=== PATIENT | male | born 1960 | race Caucasian/White ===

== ENCOUNTER 2017-02-18 08:40 | Emergency (ER) | payer MEDICAID ==
[2017-02-18 08:40] VITALS: BMI 25.6
[2017-02-18 08:54] VITALS: PULSE 84
[2017-02-18 10:10] LABS: RBC URINE 1 /hpf (0-3); URINE BILIRUBIN NEGATIVE (NEGATIVE); URINE BLOOD NEGATIVE (NEGATIVE); URINE COLOR Yellow (YELLOW); URINE GLUCOSE (UA) NORMAL (Normal); URINE KETONE NEGATIVE (NEGATIVE); URINE LEUKOCYTE ESTERASE NEG Leu/uL (Negative); URINE PROTEIN NEGATIVE (NEGATIVE); URINE UROBILINOGEN NORMAL mg/dL (0.2-1.0); WBC URINE < 1 /hpf (0-5)
[2017-02-18 10:14] LABS: CHLORIDE 94 mmol/L (98-107)
[2017-02-18 10:15] LABS: POTASSIUM 4.1 mmol/L (3.6-5.2); SODIUM 136 mmol/L (132-148)
[2017-02-18 10:17] LABS: ALB/GLOB RATIO 1.3 (1.0-2.1); AMYLASE 58 U/L (30-110); BASO % 0.4 % (0.0-2.0); BILIRUBIN,TOTAL 0.2 mg/dL (0.2-1.3); BLOOD UREA NITROGEN 16 mg/dL (9-20); CARBON DIOXIDE 28 mmol/L (22-30); EOS # 0.4 K/uL (0.0-0.7); EOS % 5.9 % (0.0-4.0); GFR AFRICAN-AMERICAN > 60; HEMATOCRIT 38.7 % (35.0-51.0); LYMPH # 1.6 K/uL (1.0-4.3); LYMPH % 23.1 % (20.0-40.0); MEAN CORPUSCULAR HEMOGLOBIN 32.8 pg (27.0-31.0); MEAN CORPUSCULAR HGB CONC 33.5 g/dL (33.0-37.0); MEAN PLATELET VOLUME 9.1 fL (7.2-11.7); MONO # 0.6 K/uL (0.0-0.8); MONO % 8.1 % (0.0-10.0); NRBC % 0.1 % (0.0-2.0); RED CELL DISTRIBUTION WIDTH 13.1 % (11.5-14.5); TOTAL PROTEIN 6.4 g/dL (6.3-8.3)
[2017-02-18 10:18] LABS: ALKALINE PHOSPHATASE 43 U/L (38-126); ALT/SGPT 60 U/L (21-72); AST/SGOT 41 U/L (17-59); CALCIUM 8.6 mg/dl (8.6-10.4); GLUCOSE,RANDOM 178 mg/dL (75-110)
[2017-02-18 10:19] LABS: ALCOHOL SERUM < 10 mg/dl (0-10)
[2017-02-18 10:20] LABS: WHITE BLOOD COUNT 7.1 K/uL (4.8-10.8)
--- NOTE | 2017-02-18 11:48 | C.PDOC ---
History Of Present Illness 56 year old patient presents to the ED complaining of abdominal pain and bloating. Patient notes dark stools. Also complains of occasional whistling when he is breathing. Currently asymptomatic. When patient was asked, he states he feels "good". Patient denies fever, nausea, vomiting, chest pain, shortness of breath, suicidal or homicidal ideation. Patient was evaluated by the PMD last week, CT scan and labs were done at that time and pt diagnosed with chronic pancreatitis. Information from primarily. Time Seen by Provider: 02/18/17 08:58 Chief Complaint (Nursing): Abdominal Pain History Per: Patient, Family, [place] History/Exam Limitations: language barrier Onset/Duration Of Symptoms: Days Current Symptoms Are (Timing): Still Present Context: Other Severity: Mild Pain Scale Rating Of: 3 Location Of Pain/Discomfort: Diffuse Radiation Of Pain To:: None Quality Of Discomfort: "Pain" Exacerbating Factors: None Alleviating Factors: None Last Bowel Movement: Today Recent travel outside of the [place]: No Additional History Per: Family Past Medical History Reviewed: Historical Data, Nursing Documentation, Vital Signs Vital Signs: Last Vital Signs Temp 98.9 F 02/18/17 12:27 Pulse 84 02/18/17 12:27 Resp 20 02/18/17 12:27 BP 103/69 02/18/17 12:27 Pulse Ox 94 L 02/18/17 12:44 - Medical History PMH: Anxiety, Bipolar Disorder, Depression, Schizophrenia Surgical History: Cholecystectomy - [facility] Procedures INJECT/INFUSE NEC (12/31/03) INTRAOPER CHOLANGIOGRAM (03/16/01) LAPAROSCOPIC CHOLECYSTECTOMY (03/16/01) Family History: States: Unknown Family Hx - Social History Hx Alcohol Use: Yes Hx Substance Use: No - Immunization History Hx Tetanus Toxoid Vaccination: No Hx Influenza Vaccination: No Hx Pneumococcal Vaccination: No Review Of Systems Except As Marked, All Systems Reviewed And Found Negative. Constitutional: Negative for: Fever Cardiovascular: Negative for: Chest Pain Respiratory: Negative for: Shortness of Breath Gastrointestinal: Positive for: Abdominal Pain, Other (bloating). Negative for : Nausea, Vomiting Physical Exam - Physical Exam Appears: Non-toxic, No Acute Distress (sleeping) Skin: Warm, Dry Head: Atraumatic, Normacephalic Eye(s): bilateral: Normal Inspection, EOMI Nose: Normal Oral Mucosa: Moist Throat: No Drooling, Other ((-) stridor) Neck: Normal ROM, Supple Chest: Symmetrical Cardiovascular: Rhythm Regular Respiratory: Normal Breath Sounds, No Accessory Muscle Use, No Rales, No Rhonchi , No Stridor, No Wheezing Gastrointestinal/Abdominal: Soft, No Tenderness, No Guarding, No Rebound Rectal: No Hemorrhoids, No Mass, No Tenderness, Other ((-)bright red blood) Back: Normal Inspection, No CVA Tenderness Extremity: Normal ROM Neurological/Psych: Oriented x3 ED Course And Treatment - Laboratory Results Result Diagrams: 02/18/17 10:01 02/18/17 10:01 O2 Sat by Pulse Oximetry: 94 (RA) - Other Rad Obstructive Series X-Ray: Interpreted by Me, Viewed By Me Interpretation: +FOS. No air fluid levels. Progress Note: Plan: -Labs. -Obstructive Series. --Reassess and disposition. Patient's old CT scan was examined which notes chronic pancreatitis, no signs of acute. Patient is tolerating po in the ED. Pt has recent CT and no new symptoms since. Answering questions appropriately. No admoninal tenderness on deep palpation. No leg swelling. No chest pain. No SOB. No tachycardic or hypoxic. Use inhaler as needed for difficulty breathing and if "whistling" occurs. Follow up with PMD in 1-2 days, or return if symptoms persist or worsen. Case discussed with Dr Potter, agreed upon plan and discharge. Disposition - Disposition Referrals: Cuca Pringle MD [Non-Staff] - Disposition: HOME/ ROUTINE Disposition Time: 12:09 Condition: STABLE Additional Instructions: Vaya a sauceda mdico o la clnica en 2-5 garcia sin falta, para mas evaluacin. Volver a la andie de emergencia en cualquier momento si los sntomas persisten o empeoran. Prescriptions: Albuterol HFA [Ventolin HFA 90 mcg/actuation (8 g)] 2 puff IH [id number] PRN #1 puff PRN Reason: Shortness Of Breath Magnesium Citrate 100 mg PO BID #20 tablet Instructions: Rectal Bleeding (ED) Print Language: MONGOLIAN - Clinical Impression Clinical Impression: Abdominal bloating, Constipation - PA / UPFITTER / Resident Statement MD/DO has reviewed & agrees with the documentation as recorded. - Scribe Statement The provider has reviewed the documentation as recorded by the Scribe Cristina Newberry All medical record entries made by the Scribe were at my direction and personally dictated by me. I have reviewed the chart and agree that the record accurately reflects my personal performance of the history, physical exam, medical decision making, and the department course for this patient. I have also personally directed, reviewed, and agree with the discharge instructions and disposition.
--- NOTE | 2017-02-18 12:15 | RAD ---
Abdomen four views History: Abdominal pain. Comparison: None available. Findings: Mild venous congestion. Right hilar prominence. Patchy increased markings at the left lung base. Cardiomegaly. Surgical clips in the right upper abdomen. Moderate fecal retention in the colon. No evidence of gross bowel obstruction. Impression: Moderate fecal retention in the colon.
[2017-02-18 12:28] VITALS: BP 103/69; RESP 20; TEMP 98.9
[2017-02-18 12:36] VITALS: O2SAT 94
== END 2017-02-18 12:35 | disposition home or self-care (01) ==
LOC: C.ER 08:40
DX: K59.00 Constipation, unspecified (principal); R14.0 Abdominal distension (gaseous)
CPT/HCPCS: 74022; 80053; 80320; 80324; 80345; 80346; 80349; 80353; 80358; 80361; 81001; 82150; 82550; 83690; 83992; 85025; 99284; G0328

== ENCOUNTER 2017-02-24 10:54 | Emergency (ER) | payer MEDICAID ==
[2017-02-24 10:58] VITALS: BMI 26.4
[2017-02-24] MEDS ORDERED: Sodium Chloride 0.9% 1,000 ML IV ONE (11:20)
--- NOTE | 2017-02-24 11:23 | C.PDOC ---
History Of Present Illness 56 year old male presents to the ED with complaints of vomiting and nausea beginning last night. He notes a history of depression and bipolar disorder. Patient denies any abdominal pain, diarrhea, or fever. Time Seen by Provider: 02/24/17 11:10 Chief Complaint (Nursing): Abdominal Pain History Per: Patient History/Exam Limitations: no limitations Onset/Duration Of Symptoms: Hrs Current Symptoms Are (Timing): Still Present Associated Symptoms: Nausea, Vomiting. denies: Fever, Chills, Diarrhea, Back Pain Past Medical History Reviewed: Historical Data, Nursing Documentation, Vital Signs Vital Signs: Last Vital Signs Temp 97.7 F 02/24/17 10:58 Pulse 84 02/24/17 10:58 Resp 18 02/24/17 10:58 BP 126/86 02/24/17 10:58 Pulse Ox 97 02/24/17 10:58 - Medical History PMH: Anxiety, Bipolar Disorder, Depression, Schizophrenia, Seizures (Pt. denied) Surgical History: Cholecystectomy - [facility] Procedures INJECT/INFUSE NEC (12/31/03) INTRAOPER CHOLANGIOGRAM (03/16/01) LAPAROSCOPIC CHOLECYSTECTOMY (03/16/01) Family History: States: Unknown Family Hx - Social History Hx Alcohol Use: Yes Hx Substance Use: No - Immunization History Hx Tetanus Toxoid Vaccination: No Hx Influenza Vaccination: No Hx Pneumococcal Vaccination: No Review Of Systems Constitutional: Negative for: Fever, Chills, Sweats Cardiovascular: Negative for: Chest Pain Respiratory: Negative for: Cough, Shortness of Breath Gastrointestinal: Positive for: Nausea, Vomiting. Negative for: Abdominal Pain , Diarrhea Genitourinary: Negative for: Dysuria Musculoskeletal: Negative for: Back Pain Physical Exam - Physical Exam Appears: Non-toxic, No Acute Distress Skin: Warm, Dry Head: Normacephalic Eye(s): bilateral: PERRL, EOMI Ear(s): Bilateral: Normal Oral Mucosa: Moist Tongue: Normal Appearing Lips: Normal Appearing Neck: Normal ROM, Supple Chest: Symmetrical, No Deformity Cardiovascular: Rhythm Regular Respiratory: No Decreased Breath Sounds, No Accessory Muscle Use, No Rales, No Rhonchi, No Stridor, No Wheezing Gastrointestinal/Abdominal: Soft, No Tenderness, No Distention, No Guarding, No Rebound Extremity: Normal ROM, No Tenderness Neurological/Psych: Oriented x3 ED Course And Treatment O2 Sat by Pulse Oximetry: 97 - Scribe Statement The provider has reviewed the documentation as recorded by the Scribe Yohana Cross All medical record entries made by the Scribe were at my direction and personally dictated by me. I have reviewed the chart and agree that the record accurately reflects my personal performance of the history, physical exam, medical decision making, and the department course for this patient. I have also personally directed, reviewed, and agree with the discharge instructions and disposition.
[2017-02-24] MEDS ORDERED: Sodium Chloride 0.9% 1,000 ML ONE (11:26)
--- NOTE | 2017-02-24 11:27 | C.PDOC ---
History Of Present Illness 56 year old male presents to the ED with complaints of nause and vomiting beginning last night. He notes a history of depression and bipolar disorder. Patient denies any fever, abdominal pain, diarrhea, recent travel. Of note is also being seen ED for vomiting and abdominal pain. Time Seen by Provider: 02/24/17 11:10 Chief Complaint (Nursing): Abdominal Pain History Per: Patient History/Exam Limitations: no limitations Onset/Duration Of Symptoms: Hrs Current Symptoms Are (Timing): Better Context: Other (sick contacts) Severity: None Associated Symptoms: Nausea, Vomiting. denies: Fever, Chills, Diarrhea Past Medical History Reviewed: Historical Data, Nursing Documentation, Vital Signs Vital Signs: Last Vital Signs Temp 97.6 F 02/24/17 12:32 Pulse 78 02/24/17 12:32 Resp 16 02/24/17 12:32 BP 120/87 02/24/17 12:32 Pulse Ox 98 02/24/17 12:32 - Medical History PMH: Anxiety, Bipolar Disorder, Depression, Pancreatitis, Schizophrenia, Seizures (Pt. denied) Surgical History: Cholecystectomy - [facility] Procedures INJECT/INFUSE NEC (12/31/03) INTRAOPER CHOLANGIOGRAM (03/16/01) LAPAROSCOPIC CHOLECYSTECTOMY (03/16/01) Family History: States: Unknown Family Hx - Social History Hx Alcohol Use: Yes Hx Substance Use: No - Immunization History Hx Tetanus Toxoid Vaccination: No Hx Influenza Vaccination: No Hx Pneumococcal Vaccination: No Review Of Systems Constitutional: Negative for: Fever, Chills, Sweats Cardiovascular: Negative for: Chest Pain Respiratory: Negative for: Cough, Shortness of Breath Gastrointestinal: Positive for: Nausea, Vomiting. Negative for: Abdominal Pain , Diarrhea Genitourinary: Negative for: Dysuria Musculoskeletal: Negative for: Back Pain Physical Exam - Physical Exam Appears: Non-toxic, No Acute Distress Skin: Warm, Dry Head: Atraumatic, Normacephalic Eye(s): bilateral: Normal Inspection Oral Mucosa: Moist Lips: Normal Appearing Throat: Normal Neck: Normal ROM, Supple Chest: Symmetrical, No Deformity Cardiovascular: Rhythm Regular Respiratory: No Decreased Breath Sounds, No Accessory Muscle Use, No Rales, No Rhonchi, No Stridor, No Wheezing Gastrointestinal/Abdominal: Bowel Sounds, Soft, No Tenderness, No Mass, No Distention, No Guarding, No Rebound, No Hernia Extremity: Normal ROM, No Tenderness, No Deformity Neurological/Psych: Oriented x3, Normal Speech Gait: Steady ED Course And Treatment - Laboratory Results Result Diagrams: 02/24/17 11:34 02/24/17 11:34 Lab Interpretation: No Acute Changes O2 Sat by Pulse Oximetry: 97 (room air) Pulse Ox Interpretation: Normal Medical Decision Making Medical Decision Makin y.o male with nausea and vomiting since yesterday. Patient appears well nontoxic and in no distress. No abdominal pain or tenderness on palpation. Patient treated with IV NS and Zofran. Prior records reviewed and patient has history of chronic pancreatitis. Of note patient also being evaluated in Ed for similar symptoms. Labs ordered and reviewed, lipase WNL. Patient re- evaluated and is seated comfortably in no distress. He reports feeling better and was able to tolerate po. patient stable for discharge. Disposition Counseled Patient/Family Regarding: Need For Followup, Rx Given - Disposition Referrals: Cuca Pringle MD [Non-Staff] - Disposition: HOME/ ROUTINE Disposition Time: 12:18 Condition: STABLE Additional Instructions: Drink fluids to prevent dehydration. Take Zofran as prescribed. Try low-fat diet with increase in fluids such as sport drink, gelatin. Prescriptions: Ondansetron ODT [Zofran ODT] 1 odt PO BID PRN #6 odt PRN Reason: Nausea/Vomiting Instructions: Acute Nausea and Vomiting (ED) Print Language: POLISH - POA Present On Arrival: None - Clinical Impression Clinical Impression: Nausea & vomiting - Scribe Statement The provider has reviewed the documentation as recorded by the Seeibmorgan Cross All medical record entries made by the Seeibmorgan were at my direction and personally dictated by me. I have reviewed the chart and agree that the record accurately reflects my personal performance of the history, physical exam, medical decision making, and the department course for this patient. I have also personally directed, reviewed, and agree with the discharge instructions and disposition.
[2017-02-24 11:41] LABS: BASO % 0.4 % (0.0-2.0); EOS # 0.1 K/uL (0.0-0.7); EOS % 0.7 % (0.0-4.0); HEMATOCRIT 44.5 % (35.0-51.0); LYMPH # 0.8 K/uL (1.0-4.3); LYMPH % 6.5 % (20.0-40.0); MEAN CELL VOLUME 96.9 fL (80.0-94.0); MEAN CORPUSCULAR HEMOGLOBIN 32.5 pg (27.0-31.0); MEAN CORPUSCULAR HGB CONC 33.5 g/dL (33.0-37.0); MEAN PLATELET VOLUME 8.9 fL (7.2-11.7); MONO # 0.5 K/uL (0.0-0.8); MONO % 4.4 % (0.0-10.0); PLATELET COUNT 374 K/uL (130-400); WHITE BLOOD COUNT 12.1 K/uL (4.8-10.8)
[2017-02-24 11:47] LABS: CHLORIDE 99 mmol/L (98-107); POTASSIUM 4.4 mmol/L (3.6-5.2); SODIUM 138 mmol/L (132-148)
[2017-02-24 11:49] LABS: ALB/GLOB RATIO 1.3 (1.0-2.1); AST/SGOT 30 U/L (17-59); BILIRUBIN,TOTAL 0.7 mg/dL (0.2-1.3); CARBON DIOXIDE 25 mmol/L (22-30); GFR AFRICAN-AMERICAN > 60; TOTAL PROTEIN 8.3 g/dL (6.3-8.3)
[2017-02-24 11:50] LABS: ALKALINE PHOSPHATASE 61 U/L (38-126); ALT/SGPT 46 U/L (21-72); BLOOD UREA NITROGEN 26 mg/dL (9-20); CALCIUM 9.3 mg/dl (8.6-10.4); GLUCOSE,RANDOM 157 mg/dL (75-110)
[2017-02-24 12:00] LABS: EOSINOPHIL 1 % (0-4); NEUTROPHIL 89 % (50-75); TOTAL CELLS COUNTED 100
[2017-02-24 12:07] LABS: LARGE PLATELETS PRESENT
[2017-02-24 12:34] VITALS: BP 120/87; PULSE 78; RESP 16; TEMP 97.6
[2017-02-24 15:28] VITALS: O2SAT 97
== END 2017-02-24 12:32 | disposition home or self-care (01) ==
LOC: C.ER 10:54
DX: R11.2 Nausea with vomiting, unspecified (principal)
CPT/HCPCS: 80053; 83690; 85025; 96361; 96374; 99284; J2405; J7040

== ENCOUNTER 2017-04-02 16:36 | Emergency (ER) | payer MEDICAID ==
[2017-04-02 16:36] VITALS: BMI 26.4
[2017-04-02 17:18] VITALS: TEMP 97.8
--- NOTE | 2017-04-02 17:41 | C.PDOC ---
History Of Present Illness 56 y/o M p/w L sided back pain since yesterday. Describes pain as constant, worse with movement, not associated with trauma. Denies fever, vomiting, dysuria , hematuria, weakness, numbness, urinary or bowel retention or incontinence. Time Seen by Provider: 04/02/17 17:34 Chief Complaint (Nursing): Back Pain Past Medical History Vital Signs: Last Vital Signs Temp 97.8 F 04/02/17 17:12 Pulse 100 H 04/02/17 17:12 Resp 14 04/02/17 17:12 BP 110/75 04/02/17 17:12 Pulse Ox 97 04/02/17 17:41 - Medical History PMH: Anxiety, Bipolar Disorder, Depression, Pancreatitis, Schizophrenia Denies: Chronic Kidney Disease Comment Only: Seizures (Pt. denied) Surgical History: Cholecystectomy - [facility] Procedures INJECT/INFUSE NEC (12/31/03) INTRAOPER CHOLANGIOGRAM (03/16/01) LAPAROSCOPIC CHOLECYSTECTOMY (03/16/01) Family History: States: Unknown Family Hx - Social History Hx Alcohol Use: No Hx Substance Use: No - Immunization History Hx Tetanus Toxoid Vaccination: No Hx Influenza Vaccination: No Hx Pneumococcal Vaccination: No Review Of Systems Except As Marked, All Systems Reviewed And Found Negative. Constitutional: Negative for: Fever Respiratory: Negative for: Shortness of Breath Physical Exam - Physical Exam Appears: No Acute Distress Skin: Normal Color, No Rash Head: Atraumatic, Normacephalic Eye(s): bilateral: PERRL Oral Mucosa: Moist Neck: Normal ROM, No Midline Cervical Tenderness Lymphatic: No Adenopathy Cardiovascular: Rhythm Regular Respiratory: Normal Breath Sounds Gastrointestinal/Abdominal: Soft, No Tenderness, No Distention, No Guarding, No Rebound Back: No Normal Inspection (L sided lumbar tenderness), No Vertebral Tenderness Extremity: No Tenderness, No Swelling Extremity: Bilateral: Normal ROM Pulses: Left Radial: Normal, Right Radial: Normal Neurological/Psych: Normal Speech, Normal Cognition, Normal Motor, Normal Sensation Gait: Steady ED Course And Treatment O2 Sat by Pulse Oximetry: 97 Medical Decision Making Medical Decision Making: UA to evaluate for infection or hematuria. Toradol for pain. Patient felt much better after medication and requesting to go home. F/u PMD, return to ER for vomiting, dysuria, hematuria. Disposition - Disposition Referrals: Cuca Pringle MD [Non-Staff] - Disposition: HOME/ ROUTINE Disposition Time: 18:10 Condition: STABLE Prescriptions: Ibuprofen [Motrin] 600 mg PO Q6 #25 tab Instructions: Back Pain (ED) - Clinical Impression Clinical Impression: Low back pain
[2017-04-02 17:46] LABS: RBC URINE 1 /hpf (0-3); URINE BILIRUBIN NEGATIVE (NEGATIVE); URINE BLOOD 1+ (NEGATIVE); URINE COLOR Straw (YELLOW); URINE GLUCOSE (UA) NORMAL (Normal); URINE KETONE NEGATIVE (NEGATIVE); URINE LEUKOCYTE ESTERASE NEG Leu/uL (Negative); URINE PROTEIN NEGATIVE (NEGATIVE); URINE UROBILINOGEN NORMAL mg/dL (0.2-1.0); WBC URINE < 1 /hpf (0-5)
[2017-04-02 18:17] VITALS: BP 113/79; PULSE 90; RESP 18; O2SAT 95
== END 2017-04-02 18:17 | disposition home or self-care (01) ==
LOC: C.ER 16:36
DX: M54.5 Low back pain (principal)
CPT/HCPCS: 81001; 96372; 99284; J1885

== ENCOUNTER 2017-09-28 10:59 | Emergency (ER) | payer MEDICAID, OTHER ==
[2017-09-28 10:59] VITALS: BMI 26.4
[2017-09-28 11:24] VITALS: TEMP 97.6
--- NOTE | 2017-09-28 12:06 | C.PDOC ---
History Of Present Illness 57 y/o male, with PMHx of Schizophrenia, and bipolar disorder, presents to ED for evaluation of depression and anxiety. Notes that he has not slept or ate in the past 3 days. No other complaints. Time Seen by Provider: 09/28/17 11:47 Chief Complaint (Nursing): Psychiatric Evaluation History Per: Patient History/Exam Limitations: no limitations Onset/Duration Of Symptoms: Gradual Current Symptoms Are (Timing): Still Present Suicide/Self Injury Attempted (Context): None Modifying Factor(s): None Severity: None Pain Scale Rating Of: 0 Associated Symptoms: Anxiety, Depression. denies: Suicidal Thoughts, Suicidal Plan Involuntary Hold By: None Recent travel outside of the [place]: No Additional History Per: Patient Past Medical History Reviewed: Historical Data, Nursing Documentation, Vital Signs Vital Signs: Last Vital Signs Temp 97.6 F 09/28/17 11:22 Pulse 82 09/28/17 13:23 Resp 18 09/28/17 13:23 BP 113/76 09/28/17 13:23 Pulse Ox 95 09/28/17 13:23 - Medical History PMH: Anxiety, Bipolar Disorder, Depression, Hypercholesterolemia, Pancreatitis, Schizophrenia Denies: Chronic Kidney Disease Comment Only: Seizures (Pt. denied) Surgical History: Cholecystectomy - [facility] Procedures INJECT/INFUSE NEC (12/31/03) INTRAOPER CHOLANGIOGRAM (03/16/01) LAPAROSCOPIC CHOLECYSTECTOMY (03/16/01) Family History: States: Unknown Family Hx - Social History Hx Alcohol Use: No Hx Substance Use: No - Immunization History Hx Tetanus Toxoid Vaccination: No Hx Influenza Vaccination: No Hx Pneumococcal Vaccination: No Review Of Systems Except As Marked, All Systems Reviewed And Found Negative. Constitutional: Negative for: Fever, Chills Cardiovascular: Negative for: Chest Pain, Palpitations Respiratory: Negative for: Cough, Shortness of Breath Psych: Positive for: Anxiety, Depression. Negative for: Suicidal ideation Physical Exam - Physical Exam Appears: Non-toxic, No Acute Distress, Other (anxious) Skin: Normal Color, Warm, Dry Head: Atraumatic, Normacephalic Eye(s): bilateral: Normal Inspection Oral Mucosa: Moist Neck: Normal ROM, Supple Chest: Symmetrical Cardiovascular: Rhythm Regular, No Murmur Respiratory: Normal Breath Sounds, No Rales, No Rhonchi, No Wheezing Extremity: Normal ROM Neurological/Psych: Oriented x3, Normal Speech ED Course And Treatment - Laboratory Results Result Diagrams: 09/28/17 12:04 09/28/17 12:04 O2 Sat by Pulse Oximetry: 96 Pulse Ox Interpretation: Normal Medical Decision Making Medical Decision Making: Blood work, UA ordered and reviewed. pt given ativan. Pt was cleared by crisis department. s/p ativan, much better. pt requests outpt managment. given outpt f/u by feed in worker. Disposition - Disposition Referrals: [facility] [Outside] Disposition: HOME/ ROUTINE Disposition Time: 01:00 Condition: STABLE Additional Instructions: follow up as instruted by feed in worker. return to er with worsening symptoms or concerns. Instructions: Anxiety (ED) Forms: [facility] (North Korean) - Clinical Impression Clinical Impression: Anxiety - Scribe Statement The provider has reviewed the documentation as recorded by the Scribe Perry Newberry All medical record entries made by the Scribe were at my direction and personally dictated by me. I have reviewed the chart and agree that the record accurately reflects my personal performance of the history, physical exam, medical decision making, and the department course for this patient. I have also personally directed, reviewed, and agree with the discharge instructions and disposition.
[2017-09-28 12:08] LABS: BASO % 0.5 % (0.0-2.0); EOS # 0.1 K/uL (0.0-0.7); EOS % 1.5 % (0.0-4.0); HEMATOCRIT 46.6 % (35.0-51.0); LYMPH # 1.9 K/uL (1.0-4.3); LYMPH % 22.7 % (20.0-40.0); MEAN CELL VOLUME 95.8 fL (80.0-94.0); MEAN CORPUSCULAR HEMOGLOBIN 32.9 pg (27.0-31.0); MEAN CORPUSCULAR HGB CONC 34.4 g/dL (33.0-37.0); MEAN PLATELET VOLUME 8.7 fL (7.2-11.7); MONO # 0.5 K/uL (0.0-0.8); MONO % 6.2 % (0.0-10.0); RED CELL DISTRIBUTION WIDTH 13.5 % (11.5-14.5); WHITE BLOOD COUNT 8.3 K/uL (4.8-10.8)
[2017-09-28 12:31] LABS: ALB/GLOB RATIO 1.4 (1.0-2.1); ALCOHOL SERUM < 10 mg/dl (0-10); ALKALINE PHOSPHATASE 63 U/L (38-126); ALT/SGPT 80 U/L (21-72); AST/SGOT 37 U/L (17-59); BLOOD UREA NITROGEN 20 mg/dL (9-20); CALCIUM 8.9 mg/dl (8.6-10.4); CARBON DIOXIDE 25 mmol/L (22-30); CHLORIDE 101 mmol/L (98-107); GFR AFRICAN-AMERICAN > 60; GLUCOSE,RANDOM 148 mg/dL (75-110); POTASSIUM 4.2 mmol/L (3.6-5.2); SODIUM 137 mmol/L (132-148)
[2017-09-28 13:24] VITALS: BP 113/76; PULSE 82; RESP 18
[2017-09-28 14:43] VITALS: O2SAT 96
== END 2017-09-28 14:15 | disposition home or self-care (01) ==
LOC: C.ER 10:59
DX: F41.9 Anxiety disorder, unspecified (principal); E78.00 Pure hypercholesterolemia, unspecified

== ENCOUNTER 2017-10-22 09:52 | Emergency (ER) | payer OTHER ==
[2017-10-22 10:07] VITALS: BMI 26.9
[2017-10-22 10:09] VITALS: TEMP 98.1
[2017-10-22] MEDS ORDERED: Sodium Chloride 0.9% 1,000 ML IV ONE (10:26)
[2017-10-22 10:38] LABS: BASO # 0.1 K/uL (0.0-0.2); BASO % 0.6 % (0.0-2.0); EOS % 0.5 % (0.0-4.0); HEMATOCRIT 44.6 % (35.0-51.0); LYMPH # 1.8 K/uL (1.0-4.3); LYMPH % 17.5 % (20.0-40.0); MEAN CELL VOLUME 95.9 fL (80.0-94.0); MEAN CORPUSCULAR HEMOGLOBIN 32.8 pg (27.0-31.0); MEAN CORPUSCULAR HGB CONC 34.2 g/dL (33.0-37.0); MEAN PLATELET VOLUME 8.7 fL (7.2-11.7); MONO # 0.6 K/uL (0.0-0.8); MONO % 5.9 % (0.0-10.0); RED CELL DISTRIBUTION WIDTH 13.3 % (11.5-14.5); WHITE BLOOD COUNT 10.1 K/uL (4.8-10.8)
[2017-10-22] MEDS ORDERED: Sodium Chloride 0.9% 1,000 ML ONE (10:41)
[2017-10-22 10:52] LABS: ALKALINE PHOSPHATASE 68 U/L (38-126); ALT/SGPT 66 U/L (21-72); AST/SGOT 30 U/L (17-59); BILIRUBIN,TOTAL 0.9 mg/dL (0.2-1.3); BLOOD UREA NITROGEN 17 mg/dL (9-20); CALCIUM 8.9 mg/dl (8.6-10.4); CARBON DIOXIDE 24 mmol/L (22-30); CHLORIDE 104 mmol/L (98-107); GFR AFRICAN-AMERICAN > 60; GLUCOSE,RANDOM 161 mg/dL (75-110); SODIUM 141 mmol/L (132-148); TOTAL PROTEIN 8.8 g/dL (6.3-8.3)
--- NOTE | 2017-10-22 10:58 | C.PDOC ---
History Of Present Illness 57 y/o male with a PMHx that includes Schizophrenia present to ED reports " dont feel good, nausea, epigastric pain". Pt admits, depleted his medication and feel depressed now. Pt states he recently moved to [place] from [place] in 11/2016. Otherwise, pt denies fever, chills, headache, dizziness, visual changes, focal deficits, CP, SOB, dyspnea, palpitation, V/D, UTI sx, denies weakness, sensory or vascular deficits to B?L UEs and LEs, denies suicidal or homocidal ideation. AT present time, appears depressed, crying. Time Seen by Provider: 10/22/17 10:11 Chief Complaint (Nursing): GI Problem History Per: Patient Past Medical History Reviewed: Historical Data, Nursing Documentation, Vital Signs Vital Signs: Last Vital Signs Temp 98.1 F 10/22/17 10:08 Pulse 86 10/22/17 12:15 Resp 17 10/22/17 12:15 BP 124/80 10/22/17 12:15 Pulse Ox 97 10/22/17 12:15 - Medical History PMH: Anxiety, Bipolar Disorder, Depression, Hypercholesterolemia, Pancreatitis, Schizophrenia Denies: Chronic Kidney Disease Comment Only: Seizures (Pt. denied) Surgical History: Cholecystectomy - [facility] Procedures INJECT/INFUSE NEC (12/31/03) INTRAOPER CHOLANGIOGRAM (03/16/01) LAPAROSCOPIC CHOLECYSTECTOMY (03/16/01) Family History: States: Unknown Family Hx - Social History Hx Alcohol Use: No Hx Substance Use: No - Immunization History Hx Tetanus Toxoid Vaccination: No Hx Influenza Vaccination: No Hx Pneumococcal Vaccination: No Review Of Systems Except As Marked, All Systems Reviewed And Found Negative. Constitutional: Negative for: Fever, Chills Eyes: Negative for: Vision Change ENT: Negative for: Ear Discharge, Throat Pain Cardiovascular: Negative for: Chest Pain, Palpitations Respiratory: Negative for: Cough, Shortness of Breath Gastrointestinal: Positive for: Nausea, Abdominal Pain. Negative for: Vomiting , Diarrhea, Hematochezia, Hematemesis Genitourinary: Negative for: Dysuria, Incontinence Musculoskeletal: Negative for: Neck Pain, Back Pain Neurological: Negative for: Weakness, Numbness, Altered Mental Status, Headache , Dizziness Psych: Positive for: Depression Physical Exam - Physical Exam Appears: Well, No Acute Distress, Other (emotional ditress, crying) Skin: Normal Color, Warm, Dry, No Rash Eye(s): bilateral: PERRL Nose: No Discharge Oral Mucosa: Moist, No Drooling Throat: No Erythema, No Exudate, No Drooling Neck: Trachea Midline, Supple Cardiovascular: Rhythm Regular, No Murmur, No JVD Respiratory: No Stridor, No Wheezing Gastrointestinal/Abdominal: Soft, No Tenderness, No Distention, No Guarding Back: No CVA Tenderness Extremity: Normal ROM, No Pedal Edema, No Deformity Neurological/Psych: Oriented x3, Normal Speech ED Course And Treatment - Laboratory Results Result Diagrams: 10/22/17 10:35 10/22/17 10:35 Lab Interpretation: Normal O2 Sat by Pulse Oximetry: 95 Pulse Ox Interpretation: Normal - Radiology CXR: Interpreted by Me, Viewed By Me CXR Interpretation: Yes: No Acute Disease Progress Note: AT 11:10, PT IS MEDICALLY CLEARED FOR PSYCH EVALUATION. On re- evaluation, pt appears more comfortable, not in nay apparent distress. Awake, appropriate, denies siocodal or homocidal ideation. Afebrile, hemodynamicaly stable. NOn-toxic. Neck: SUpple, (-) meningeal sign. Lungs: CTA B/L, BS equal B/L. CVS: (+)S1S2, reg. Abd: Benign. Neuorlogicaly intact. Blood work review and appears normal. Pt was evaluated by bench worker apprentice Luciano, and case discussed with . Pt has his medication refill at pharmacy " [place], [place] and ready for crop picker today. As per Luciano, pt does not meet admission criteria and is stable for discharge and outpt f/u now. Pt advised on course of ds.Pt understand and agrees with discharges. ref. to F/u with PMD , Psych in 2-3 days for re-eavl. return to ED if any worsening or new changes. Disposition Counseled Patient/Family Regarding: Studies Performed, Diagnosis, Need For Followup - Disposition Referrals: [facility] [Outside] [facility] [Outside] Disposition: HOME/ ROUTINE Disposition Time: 12:01 Condition: STABLE Additional Instructions: TAKE YOUR MEDICATION PRESCRIBED FOLLOW UP WITH PSYCHIATRIST IN 1-2 DAYS FOR RE-EVALUATION. RETURN TO ED IF ANY WORSENING OR NEW CHANGES. Instructions: Depression (ED), Schizophrenia (ED) Forms: [facility] (Syri[place]) Print Language: THAI - Clinical Impression Clinical Impression: Depression, Schizophrenia
[2017-10-22 11:00] LABS: URINE BILIRUBIN NEGATIVE (NEGATIVE); URINE BLOOD 1+ (NEGATIVE); URINE COLOR Yellow (YELLOW); URINE GLUCOSE (UA) NORMAL (Normal); URINE KETONE NEGATIVE (NEGATIVE); URINE LEUKOCYTE ESTERASE NEG Leu/uL (Negative); URINE PROTEIN NEGATIVE (NEGATIVE); URINE UROBILINOGEN NORMAL mg/dL (0.2-1.0)
[2017-10-22 11:02] LABS: RBC URINE 4 /hpf (0-3); WBC URINE 1 /hpf (0-5)
[2017-10-22 12:16] VITALS: BP 124/80; PULSE 86; RESP 17
[2017-10-23 08:46] VITALS: O2SAT 95
== END 2017-10-22 12:23 | disposition home or self-care (01) ==
LOC: C.ER 09:52
DX: F20.9 Schizophrenia, unspecified (principal); F32.9 Major depressive disorder, single episode, unspecified
CPT/HCPCS: 71020; 80053; 80324; 80345; 80346; 80349; 80353; 80358; 80361; 81001; 82550; 83690; 83992; 85025; 96361; 96374; 96375; 99285; J2060; J2405; J7040

== ENCOUNTER 2018-07-14 08:58 | Emergency (ER) | payer MEDICARE, OTHER ==
[2018-07-14 08:58] VITALS: BMI 26.9
[2018-07-14] MEDS ORDERED: Sodium Chloride 0.9% 500 ML IV ONE (09:40)
--- NOTE | 2018-07-14 09:40 | C.PDOC ---
History Of Present Illness 58 y/o male presents to ED c/o persistent nausea and vomiting since yesterday. She reports onset 1 hour after eating old potato sandwich. Otherwise, denies abdominal pain, diarrhea, or fever. Time Seen by Provider: 07/14/18 09:14 History Per: Patient History/Exam Limitations: no limitations Onset/Duration Of Symptoms: Days Current Symptoms Are (Timing): Still Present Severity: None Pain Scale Rating Of: 0 Associated Symptoms: Nausea, Vomiting. denies: Diarrhea, Loss Of Appetite, Constipation, Urinary Symptoms Exacerbating Factors: None Alleviating Factors: None Recent travel outside of the [place]: No Additional History Per: Patient Past Medical History Reviewed: Historical Data, Nursing Documentation, Vital Signs Vital Signs: Last Vital Signs Temp 98.1 F 07/14/18 09:12 Pulse 82 07/14/18 09:12 Resp 18 07/14/18 09:12 BP 130/90 07/14/18 09:12 Pulse Ox 97 07/14/18 10:23 - Medical History PMH: Anxiety, Bipolar Disorder, Depression, Hypercholesterolemia, Pancreatitis, Schizophrenia Denies: Diabetes, Hepatitis, HIV, HTN, Chronic Kidney Disease, Sexually Transmitted Disease Comment Only: Seizures (Pt. denied) Surgical History: Cholecystectomy - [facility] Procedures INJECT/INFUSE NEC (12/31/03) INTRAOPER CHOLANGIOGRAM (03/16/01) LAPAROSCOPIC CHOLECYSTECTOMY (03/16/01) Family History: States: Unknown Family Hx - Social History Hx Alcohol Use: No Hx Substance Use: No - Immunization History Hx Tetanus Toxoid Vaccination: No Hx Influenza Vaccination: No Hx Pneumococcal Vaccination: No Review Of Systems Except As Marked, All Systems Reviewed And Found Negative. Constitutional: Negative for: Fever, Chills Gastrointestinal: Positive for: Nausea, Vomiting. Negative for: Abdominal Pain , Diarrhea, Constipation, Hematemesis Physical Exam - Physical Exam Appears: Non-toxic, Other (In mild distress) Skin: Normal Color, Warm, Dry, No Jaundice Head: Atraumatic, Normacephalic Eye(s): bilateral: Normal Inspection, Other (Anicteric Sclerae) Oral Mucosa: Moist Neck: Normal ROM, Supple Cardiovascular: Rhythm Regular Respiratory: Normal Breath Sounds, No Rales, No Rhonchi, No Wheezing Gastrointestinal/Abdominal: Normal Exam, Bowel Sounds, Soft, No Tenderness, No Distention, No Guarding, No Rebound Back: No CVA Tenderness Extremity: Normal ROM Neurological/Psych: Oriented x3, Normal Speech ED Course And Treatment O2 Sat by Pulse Oximetry: 97 (RA) Pulse Ox Interpretation: Normal Reevaluation Time: 12:31 Reassessment Condition: Improved (PO TRIAL WO DIFF) Medical Decision Making Medical Decision Making: Plan: Zofran IV fluids Disposition Counseled Patient/Family Regarding: Diagnosis, Need For Followup, Rx Given - Disposition Referrals: [facility] [Outside] [facility] [Outside] Disposition: HOME/ ROUTINE Disposition Time: 12:32 Condition: IMPROVED Prescriptions: Ondansetron [Zofran Odt] 4 mg PO TID PRN #9 odt PRN Reason: Nausea/Vomiting Instructions: Food Poisoning (DC), Nausea and Vomiting, Adult (DC) - Clinical Impression Clinical Impression: Nausea & vomiting - Scribe Statement The provider has reviewed the documentation as recorded by the Scribe KP All medical record entries made by the Scribe were at my direction and personally dictated by me. I have reviewed the chart and agree that the record accurately reflects my personal performance of the history, physical exam, medical decision making, and the department course for this patient. I have also personally directed, reviewed, and agree with the discharge instructions and disposition.
[2018-07-14] MEDS ORDERED: Sodium Chloride 0.9% 1,000 ML ONE (09:51)
[2018-07-14 12:42] VITALS: BP 128/84; PULSE 99; RESP 17; TEMP 98.9; O2SAT 96
== END 2018-07-14 12:42 | disposition home or self-care (01) ==
LOC: C.ER 08:58
DX: R11.2 Nausea with vomiting, unspecified (principal); E78.00 Pure hypercholesterolemia, unspecified; F20.9 Schizophrenia, unspecified
CPT/HCPCS: 96360; 99284; J7040

== ENCOUNTER 2018-12-03 12:29 | Emergency (ER) | payer MEDICARE ==
[2018-12-03 12:29] VITALS: BMI 26.9
[2018-12-03] MEDS ORDERED: Sodium Chloride 0.9% 1,000 ML IV STA (14:23)
[2018-12-03] MEDS ORDERED: Sodium Chloride 0.9% 1,000 ML ONE (14:40)
[2018-12-03 14:49] LABS: BASO % 0.5 % (0.0-2.0); EOS # 0.1 K/uL (0.0-0.7); EOS % 1.5 % (0.0-4.0); MEAN CELL VOLUME 97.2 fL (80.0-94.0); MEAN PLATELET VOLUME 9.3 fL (7.2-11.7); MONO # 0.5 K/uL (0.0-0.8); MONO % 5.5 % (0.0-10.0); NEUT # 6.5 K/uL (1.8-7.0); NEUT % 70.5 % (50.0-75.0); RBC 4.83 Mil/uL (4.40-5.90); RED CELL DISTRIBUTION WIDTH 13.6 % (11.5-14.5); WHITE BLOOD COUNT 9.2 K/uL (4.8-10.8)
[2018-12-03 15:03] LABS: ALB/GLOB RATIO 1.4 (1.0-2.1); ALBUMIN 5.1 g/dL (3.5-5.0); ALT/SGPT 94 U/L (21-72); AST/SGOT 55 U/L (17-59); BLOOD UREA NITROGEN 19 mg/dL (9-20); CALCIUM 9.6 mg/dl (8.6-10.4); GFR NON-AFRICAN AMERICAN > 60; LIPASE 148 U/L (23-300)
[2018-12-03 16:22] LABS: URINE BILIRUBIN NEGATIVE (NEGATIVE); URINE BLOOD NEGATIVE (NEGATIVE); URINE CLARITY Clear (Clear); URINE COLOR Straw (YELLOW); URINE GLUCOSE (UA) NORMAL (Normal); URINE LEUKOCYTE ESTERASE NEG Leu/uL (Negative); URINE PROTEIN NEGATIVE (NEGATIVE); URINE UROBILINOGEN NORMAL mg/dL (0.2-1.0)
[2018-12-03 16:32] LABS: BARBITURATES, UR NEGATIVE (NEGATIVE); BENZODIAZEPINES, UR NEGATIVE (NEGATIVE); OPIATES, UR NEGATIVE (NEGATIVE); PHENCYCLIDINE, UR NEGATIVE (NEGATIVE)
--- NOTE | 2018-12-03 17:11 | C.PDOC ---
History Of Present Illness 58 y/o male presents to the ER complaining of nausea, vomiting, and diarrhea which has been present for the past 1 week. Patient states that his has similar symptoms. Patient states that he is concerned because he has history of psychiatric illness and he has not able to take his medications. Denies having fever, chills, CP, SOB, and abdominal pain. Time Seen by Provider: 12/03/18 13:10 Chief Complaint (Nursing): GI Problem History Per: Patient History/Exam Limitations: no limitations Onset/Duration Of Symptoms: Days Current Symptoms Are (Timing): Still Present Severity: Moderate Past Medical History Reviewed: Historical Data, Nursing Documentation, Vital Signs Vital Signs: Last Vital Signs Temp 97.6 F 12/03/18 12:47 Pulse 92 H 12/03/18 14:33 Resp 21 12/03/18 14:33 BP 111/77 12/03/18 14:33 Pulse Ox 95 12/03/18 14:33 - Medical History PMH: Anxiety, Bipolar Disorder, Depression, Hypercholesterolemia, Pancreatitis, Schizophrenia Denies: Diabetes, Hepatitis, HIV, HTN, Chronic Kidney Disease, Sexually Transmitted Disease Comment Only: Seizures (Pt. denied) Surgical History: Cholecystectomy - [facility] Procedures INJECT/INFUSE NEC (12/31/03) INTRAOPER CHOLANGIOGRAM (03/16/01) LAPAROSCOPIC CHOLECYSTECTOMY (03/16/01) Family History: States: No Known Family Hx - Social History Hx Alcohol Use: No Hx Substance Use: No - Immunization History Hx Tetanus Toxoid Vaccination: No Hx Influenza Vaccination: Yes Hx Pneumococcal Vaccination: No Review Of Systems Except As Marked, All Systems Reviewed And Found Negative. Constitutional: Negative for: Fever, Chills Cardiovascular: Negative for: Chest Pain Respiratory: Negative for: Shortness of Breath Gastrointestinal: Positive for: Nausea, Vomiting, Diarrhea. Negative for: Abdominal Pain Physical Exam - Physical Exam Appears: Non-toxic Skin: Normal Color, Warm, Dry Head: Atraumatic, Normacephalic Eye(s): bilateral: Normal Inspection Nose: Normal Oral Mucosa: Moist Neck: Supple Chest: Symmetrical Cardiovascular: Rhythm Regular Respiratory: Normal Breath Sounds, No Rales, No Rhonchi, No Wheezing Gastrointestinal/Abdominal: Soft, No Tenderness, No Guarding, No Rebound Extremity: Normal ROM Neurological/Psych: Oriented x3, Normal Speech ED Course And Treatment - Laboratory Results Result Diagrams: 12/03/18 14:46 12/03/18 14:46 Lab Results: Total Bilirubin 0.8 mg/dL (0.2-1.3) 12/03/18 14:46 AST 55 U/L (17-59) 12/03/18 14:46 ALT 94 U/L (21-72) H D 12/03/18 14:46 Alkaline Phosphatase 62 U/L (38-126) 12/03/18 14:46 Total Protein 8.7 g/dL (6.3-8.3) H 12/03/18 14:46 Albumin 5.1 g/dL (3.5-5.0) H 12/03/18 14:46 Globulin 3.6 gm/dL (2.2-3.9) 12/03/18 14:46 Albumin/Globulin Ratio 1.4 (1.0-2.1) 12/03/18 14:46 Lipase 148 U/L (23-300) 12/03/18 14:46 Urine Color Straw (YELLOW) 12/03/18 16:09 Urine Clarity Clear (Clear) 12/03/18 16:09 Urine pH 5.0 (5.0-8.0) 12/03/18 16:09 Ur Specific [place] 1.005 (1.003-1.030) 12/03/18 16:09 Urine Protein Negative mg/dL (NEGATIVE) 12/03/18 16:09 Urine Glucose (UA) Normal mg/dL (Normal) 12/03/18 16:09 Urine Ketones Negative mg/dL (NEGATIVE) 12/03/18 16:09 Urine Blood Negative (NEGATIVE) 12/03/18 16:09 Urine Nitrate Negative (NEGATIVE) 12/03/18 16:09 Urine Bilirubin Negative (NEGATIVE) 12/03/18 16:09 Urine Urobilinogen Normal mg/dL (0.2-1.0) 12/03/18 16:09 Ur Leukocyte Esterase Neg Edyta/uL (Negative) 12/03/18 16:09 O2 Sat by Pulse Oximetry: 95 (RA) Pulse Ox Interpretation: Normal Progress Note: Labs and UA ordered. Patient treated with IV Fluids, Zofran IV, and Protonix IV. On re-evaluation, patient is able to tolerate PO. Patient has been discharged and instructed to follow up with PMD in 1-2 days. Disposition - Disposition Disposition: HOME/ ROUTINE Disposition Time: 17:10 Condition: IMPROVED Additional Instructions: Follow up with PMD within 1-2 day. Return to ED if feel worse. Prescriptions: Famotidine [Pepcid] 20 mg PO BID #20 tab Ondansetron ODT [Zofran ODT] 4 mg PO TID #20 odt Instructions: Viral Gastroenteritis Forms: [employer] (Romanian) - Clinical Impression Clinical Impression: Gastroenteritis - PA / COMMUNITY LIFE DIRECTOR / Resident Statement MD/DO has reviewed & agrees with the documentation as recorded. - Scribe Statement The provider has reviewed the documentation as recorded by the Seeibe Remi Evans Provider Attestation All medical record entries made by the Scribe were at my direction and pe rsonally dictated by me. I have reviewed the chart and agree that the record accurately reflects my personal performance of the history, physical exam, medical decision making, and the department course for this patient. I have also personally directed, reviewed, and agree with the discharge instructions and disposition.
[2018-12-03 17:27] VITALS: BP 114/77; PULSE 86; RESP 20; TEMP 97.9
[2018-12-03 18:04] VITALS: O2SAT 95
== END 2018-12-03 17:27 | disposition home or self-care (01) ==
LOC: C.ER 12:29
DX: K52.9 Noninfective gastroenteritis and colitis, unspecified (principal)
CPT/HCPCS: 80053; 81001; 83690; 85025; 96361; 96374; 96375; 99285; C9113; G0480; J2405; J7030